=== PATIENT | female | born 1955 ===

== ENCOUNTER 2021-11-29 09:00 | Inpatient (IN) | payer OTHER ==
[~2021-11-29] VITALS: Ht 157.5 cm; Wt 72.6 kg
== END 2021-12-07 15:08 | disposition home or self-care (01) | DRG 331 ==
LOC: SURG 12-05 07:06 → O/R 12-05 07:06 → SURH 12-05 09:00 → SURG 12-05 11:56
PROVIDERS: ADMIT Colon & Rectal Surgery; ATTEND Colon & Rectal Surgery
PROC: 0DBP4ZZ Excision of Rectum, Percutaneous Endoscopic Approach (ICD-10-PCS; 2021-12-05)
PROC: 0DTN4ZZ Resection of Sigmoid Colon, Percutaneous Endoscopic Approach (ICD-10-PCS; principal; 2021-12-05 11:15)
DX: K57.32 Diverticulitis of large intestine without perforation or abscess without bleeding (principal); K59.4 Anal spasm; K56.41 Fecal impaction; Z86.010 Personal history of colon polyps